=== PATIENT | female | born 1960 | race Caucasian/White ===

== ENCOUNTER → 2016-12-30 | Outpatient (CLI) | payer OTHER ==
--- NOTE | ~2016-12-30 | US49 ---
[facility] A Service of [facility] RADIOLOGY TEXT RESULTS PATIENT: ELIECER CONDE LOCATION: [facility] : 64 UNIT #: [id number] AGE: [address]: NICK RENTERIA APRN SEX: F ORDER DR: [id number] [facility]. [place], [place] [address] [id number] O MR#: [id number] Acc #: [id number] NAME: ELIECER CONDE : 1960 SEX: F STUDY DATE/TIME: 12/30/2016 14:17 UNIT: [facility] ROOM: STUDY DESCRIPTION: US Extremity Non Vasc Complete Attending Physician: Nick Renteria Aprn Referring Physician: Nick Renteria Aprn Ordering Physician: Nick Renteria Aprn Primary Care Physician: Nick Renteria Aprn MEDICAL IMAGING REPORT This report is preliminary unless electronic signature is present EXAM Ultrasound of the left upper quadrant. DATE OF EXAM 12/30/2016 INDICATION Lump beneath the skin on the left side of the abdomen, below the rib cage. TECHNIQUE Meza-scale and color Doppler sonographic images were obtained through the area of concern. FINDINGS While the wide load escort was able to palpate a lesion on physical exam within the area of concern, no sonographic abnormality was seen. No solid or cystic masses are identified. No lipoma is seen, and there are no fluid collections within this area. IMPRESSION Within the area of concern, no sonographic abnormality is identified. If the lesion persists, and clinical concern remains, further evaluation with CT through the region of interest with an overlying skin marker is suggested. Dictated by... Kimberly Bashir M.D. THIS IS AN ELECTRONICALLY VERIFIED REPORT Kimberly Bashir M.D. at 01/01/2017 3:03 PM AFF/jt [facility] A Service [facility] RADIOLOGY TEXT RESULTS PATIENT: ELIECER CONDE LOCATION: [facility] : 64 UNIT #: [id number] AGE: [address]: NICK RENTERIA APRN SEX: F ORDER DR: TD: 12/31/2016 19:47 JOB #: [id number] MEDICAL IMAGING REPORT Page 1 of 1 COPY
== END | disposition home or self-care (01) ==
LOC: CGUS 13:35
DX: R22.9 Localized swelling, mass and lump, unspecified (principal)
CPT/HCPCS: 76881